=== PATIENT | female | born 1995 | race African-American/Black ===

== ENCOUNTER 2020-03-12 01:41 | Emergency (ER) | payer OTHER, SELFPAY ==
--- NOTE | ~2020-03-12 | CT_ITS ---
EXAMINATION: CT abdomen pelvis w con EXAM DATE: 03/12/2020 03:39 INDICATION: Abdominal pain. TECHNIQUE: Spiral CT of the abdomen and pelvis was performed following intravenous injection of 100 m L Omnipaque 350. Axial, coronal and sagittal images were reviewed. The dose-length product (DLP) fo r this examination was 671.08 mGy-cm. The exposure was tailored according to patient size (auto mA e xposure control), and iterative reconstruction (ASIR) was used as additional dose reduction technique . There is no prior study for comparison. FINDINGS: The liver, spleen, adrenal glands and pancreas are unremarkable. Gallbladder is unremarkab le. No biliary obstruction. Portal and splenic veins are patent. Kidneys enhance symmetrically. T here is no hydronephrosis. The uterus and ovaries are unremarkable, no adnexal mass. The bladder i s unremarkable. There is no retroperitoneal or pelvic lymphadenopathy. The appendix is normal. The stomach and small bowel are unremarkable. There is expected amount of c olonic stool. No free intraperitoneal gas. The heart is normal in size. There are no pericardial or pleural effusions. The lung bases are unremarkable. The bones are unremarkable. IMPRESSION: 1. No acute intra-abdominal findings. Reviewed, dictated and finalized at location A. GER CONCRETE
[2020-03-12 01:50] VITALS: BP 146/88; PULSE 86; RESP 18; TEMP 36.9; O2SAT 100
[2020-03-12 02:16] LABS: Add Urine Microscopic? YES; Amorphous Sediment Urine Few; Appearance Urine Cloudy (Clear); Bilirubin Urine Negative (Negative); Blood Urine Negative (Negative); Color Urine Yellow (Yellow); Glucose Urine UA Negative (Negative); Ketones Urine Negative (Negative); Leukocyte Esterase Ur Negative LEU/UL (Negative); Mucus Urine Rare /lpf; Nitrate Urine Negative (Negative); Protein Urine 1+ mg/dL (Negative); RBC Urine 0-2 /hpf (0-2); Specific Grav Ur 1.026 (1.001-1.035); Squamous Epithelial Cell Urine Rare /hpf (Few)
[2020-03-12 02:42] LABS: Basophils Absolute Auto 0.1 K/mm3 (0.0-0.1); Basophils Percent Auto 0.7 % (0.2-1.2); Eosinophils Absolute Auto 0.1 K/mm3 (0-0.3); Eosinophils Percent Auto 0.5 % (0-4.4); Hematocrit 36.1 % (37.0-47.0); Hemoglobin 11.7 g/dL (12.0-15.0); Immature Granulocyte Absolute 0.03 K/mm3 (0.00-0.031); Immature Granulocyte Percent A 0.2 % (0-0.5); Lymphocytes Absolute Auto 3.29 K/mm3 (0.9-3.2); Lymphocytes Percent Auto 24.2 % (18.3-44.2); Mean Corpuscular HGB Conc 32.4 g/dl (32-36); Mean Corpuscular Hemoglobin 26.2 pg (26-34); Mean Corpuscular Volume 80.9 fl (80-100); Mean Platelet Volume 10.2 fl (7.4-10.4); Monocytes Absolute Auto 0.9 K/mm3 (0.1-0.6); Monocytes Percent Auto 6.3 % (2.6-8.5); Neutrophils Absolute Auto 9.3 K/mm3 (1.3-6.7); Neutrophils Percent Auto 68.1 % (45.5-73.1); Platelet Count Result 339 k/mm3 (150-375); Red Blood Count 4.46 M/mm3 (4.2-5.4); Red Cell Distribution Width 15.3 % (11.5-14.5); White Blood Count 13.6 K/mm3 (4.5-10.0)
[2020-03-12 02:47] LABS: Alanine Aminotransferase 10 U/L (4-35); Albumin Level 4.3 g/dL (3.5-5.1); Alkaline Phosphatase 115 U/L (38-126); Anion Gap 7 mmol/L (8-16); Aspartate Amino Transferase 19 U/L (14-36); Bilirubin,Total 0.2 mg/dL (0.2-1.3); Blood Urea Nitrogen 14 mg/dL (7-17); Calcium 9.4 mg/dL (8.4-10.2); Carbon Dioxide 28 mmol/L (22-30); Chloride 106 mmol/L (98-107); Estimated CRCL calculation 111 ml/min; Estimated Glomerular Filt Rate > 60; Glucose 97 mg/dL (65-105); Potassium 4.3 mmol/L (3.4-5.0); Sodium 141 mmol/L (137-145)
--- NOTE | 2020-03-12 03:06 | ED.ABDPAIN ---
HPI - Abdominal Pain General Chief Complaint: Abdominal Pain Stated Complaint: abd pain Time Seen by Provider: 03/12/20 01:43 Source: RN notes reviewed History of Present Illness HPI narrative: Patient presents emergency department from home for abdominal pain. Patient states she has been having intermittent abdominal pain for the past 1 month in the lower abdomen. Pain is described as crampy in nature and does not radiate spread associated with diarrhea. Patient states that she had an approximately 1 month ago and did not receive any follow-up care following the and pain has been ongoing since that time. She denies any fevers or chills chest pain shortness of breath or any other symptoms. 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 Related Data Allergies Allergy/AdvReac Type Severity Reaction Status Date / Time No Known Allergies Allergy Unverified 12/12/16 13:13 Review of Systems Review of Systems: Narrative: Gen.: Denies fevers or chills ENT: Denies congestion Respiratory: Denies shortness of breath or cough CV: Denies chest pain or palpitations GI: See HPI denies burning, urgency, frequency or hematuria Musculoskeletal: Denies back pain or muscle pain Neuro: Denies numbness, tingling, weakness or focal weakness Skin: Denies rash Except as documented, all other systems reviewed and negative [facility] Past Medical History Medical History (Updated 03/12/20 @ 04:49 by Alden Wang DO) Patient denies significant medical history Social History Social History (Updated 03/12/20 @ 03:08 by Alden Wang DO) Smoking status: Never smoker Exam Narrative: Exam Narrative: APPEARANCE: No acute distress, nontoxic, resting in bed HEENT: Normocephalic, atraumatic, OMM RESPIRATORY: No respiratory distress, clear to auscultation bilaterally with no rhonchi wheezing or rales CARDIOVASCULAR: RRR s murmur ABDOMINAL: Soft, nondistended, tender to palpation right lower quadrant left lower quadrant entrance right upper quadrant left upper quadrant rebound or guarding MUSCULOSKELETAl: Moves all extremities. No clubbing, cyanosis or edema. NEURO: Awake and alert. Following commands, speech normal, no focal deficits SKIN:: Warm, dry. Normal Color PSYCHIATRIC: Normal affect/mood Course Course Emergency Course: Discussed with Dr. Jerome for Dr. Dozier presentation work-up agrees with plan for discharge with follow-up as an outpatient Patient states that they are feeling much better at this time. States abdominal pain has resolved. Repeat abdominal exam shows the patient's abdomen to be soft and nontender. Discussed with patient results of workup and diagnosis. Discussed need for follow-up with primary care physician, reasons to return to the emergency department in proper use of medication. Patient understands and agrees to current treatment plan Vital Signs Vital signs: Vital Signs Temperature 98.4 F 03/12/20 01:50 Pulse Rate 86 03/12/20 01:50 Respiratory Rate 18 03/12/20 01:50 Blood Pressure 146/88 H 03/12/20 01:50 Pulse Oximetry 100 03/12/20 01:50 Temperature 98.4 F 03/12/20 01:50 Pulse Rate 79 03/12/20 03:40 Respiratory Rate 18 03/12/20 03:40 Blood Pressure 141/93 H 03/12/20 03:40 Pulse Oximetry 100 03/12/20 03:40 MDM - Abdominal Pain MDM Narrative Medical decision making narrative: Patient's abdomen is soft without significant pain or signs of surgical abdomen on serial exams. Lab and x-ray evaluations are reviewed and patient is felt to be a reasonable candidate for outpatient management. Patient was instructed as to limitations of x-ray and laboratory evaluation and encouraged to return to ED or primary physician for repeat exam in 12 hours if continued or worsening pain Lab Data Result diagrams: 03/12/20 02:26 03/12/20 02:26 Labs: Lab Results 03/12/20 03/12/20 03/12/20 Range/Units 02:04 02:26 02:26 WBC 13.6 H (4.5-10.0
[2020-03-12 03:40] VITALS: BP 141/93; PULSE 79; RESP 18; O2SAT 100
[2020-03-12 05:00] VITALS: BP 143/87; PULSE 74; RESP 18; O2SAT 99
== END 2020-03-12 05:03 | disposition home or self-care (01) ==
PROVIDERS: Emergency Provider Emergency Medicine; PCP Pediatrics
DX: N83.201 Unspecified ovarian cyst, right side (principal)
CPT/HCPCS: 36415; 74177; 80053; 81001; 81025; 85025; 99284; Q9967

== ENCOUNTER 2023-06-10 15:29 | Emergency (ER) | payer MEDICAID, SELFPAY ==
--- NOTE | ~2023-06-10 | XR_ITS ---
EXAMINATION: XR ankle LT min 3V, XR foot LT min 3V DATE: 06/10/2023 16:52 INDICATION: Left ankle pain post fall TECHNIQUE: 1. Anteroposterior, mortise and lateral view of the left ankle were obtained. 2. Dorsoplantar and lateral views of the left foot were obtained. COMPARISON: None. FINDINGS: Mildly comminuted fractures of the distal left fibula with 4 mm posterior displacement along the frac ture line extending obliquely from posterior cephalad to the anterior inferior there is 6 mm distract ion of a horizontal fracture extending across the medial malleolus. There is also suggestion of a min imally displaced fracture of the posterior malleolus. Ankle mortise remains congruent normal alignmen t and no evident fractures within the left foot. Joint spaces are normal. Fiberglas splinting materia l about the left foot and ankle. IMPRESSION: 1. Mild to minimally displaced trimalleolar fracture at the left ankle which is in near-anatomic alig nment post splinting. The configuration of the fracture suggests a Damon B supination exo rotation in jury pattern. Reviewed, dictated and finalized at location A. MANAGER IMPRESSION: 1. Mild to minimally displaced trimalleolar fracture at the left ankle which is in near-anatomic alignment post splinting. The configuration of the fracture s uggests a Damon B supination exo rotation injury pattern.
[2023-06-10 15:37] VITALS: BP 137/81; PULSE 102; RESP 16; TEMP 36.5; O2SAT 100
--- NOTE | 2023-06-10 16:22 | ED.GENADULT ---
HPI - General Adult General Chief complaint: Extremity Injury, Lower <Geena Cha August, COMPRESSOR STATION CHIEF ENGINEER - Last Filed: 06/10/23 16:27> Stated complaint: left ankle pain <Geena Cha August, COMPRESSOR [employer]ATION CHIEF ENGINEER - Last Filed: 06/10/23 16:27> Time Seen by Provider: 06/10/23 16:22 <Geena Cha August, COMPRESS[employer] CHIEF ENGINEER - Last Filed: 06/10/23 16:27> Focused HPI: Trupti Martinez is a 27 y/o female who presents with reports of falling on ice 2 days ago and went to [facility] and was told that she has an ankle fracture to her left ankle and was given follow up, but she cannot get in to see her follow up and she does not want to go to [facility] and wants someone else to look at her ankle and see if they can fix it here. Reports pain is a 7/ 10 to her ankle. Still in a splint / able to move her toes. GENERAL: Well-appearing, well-nourished, and in no acute distress. HEAD: Normocephalic, atraumatic. CHEST: Clear to auscultation. ?No respiratory distress. HEART: Regular rate and rhythm.? NEURO: ?Alert and oriented x3. Patient screened in triage and initial orders placed.? ?Additional care and disposition to be based upon?diagnostic testing and treatment. <Geena Cha August, COMPRESSOR STATION CHIEF ENGINEER - Last Filed: 06/10/23 16:27> History of Present Illness HPI narrative: 27-year-old female reports for evaluation for orthopedic referral. Patient slipped on ice 2 days ago and was evaluated at [facility] emergency department. Patient states she had a conscious sedation reduction performed on her ankle and was told she had a fracture needed to follow-up with orthopedist. Patient states that her and her father attempted to call the orthopedist at the [facility] multiple times without return of a phone call. She presents today for a referral. She states she has been taking [place] with improvement. Denies significantly worsening pain, numbness to her feet. Denies any urine or losing consciousness during the fall. Denies other injuries acquired. <Jennifer Harrison PA-C - Last Filed: 06/10/23 18:38> Related Data Allergies/adverse reactions: Allergies Allergy/AdvReac Type Severity Reaction Status Date / Time No Known Allergies Allergy Verified 06/10/23 17:41 <Geena Cha Marisel, COMPRESS[employer] CHIEF ENGINEER - Last Filed: 06/10/23 16:27> Review of Systems Review of Systems: CONSTITUTIONAL: Denies fever, chills, or sweats. EYES: Denies visual changes, redness, or discharge. ENT: Denies rhinorrhea, congestion, sore throat, or otalgia. CARDIOVASCULAR: Denies chest pain, palpitations, or edema. RESPIRATORY: Denies cough or dyspnea. GASTROINTESTINAL: Denies abdominal pain, nausea, vomiting, or diarrhea. GENITOURINARY: Denies dysuria or hematuria. SKIN: Denies rash or itching. MUSCULOSKELETAL: See HPI NEUROLOGIC: Denies headache, numbness, or weakness. PSYCHIATRIC: Denies anxiety or depression. <Jennifer Harrison PA-C - Last Filed: 06/10/23 18:38> PMFSH Past Medical History Medical History: Medical History Patient denies significant medical history <Geena Cha August, - Last Filed: 06/10/23 16:27> Social History Social History: Social History Smoking status: Never smoker <Geena Joiner, - Last Filed: 06/10/23 16:27> Exam Narrative: GENERAL: Well-appearing, well-nourished, and in no acute distress. HEAD: Normocephalic, atraumatic. EYES: PERRLA and EOMI. NECK: Supple. CHEST: Clear to auscultation. No respiratory distress. HEART: Regular rate and rhythm. No murmur heard. Normal peripheral pulses. EXTREMITIES: LLE: Posterior OCL with Cong bandages in place to left lower extremity. Cong bandages partially removed, palpation of compartments are soft. Patient able to wiggle her toes. Cap refill is less than 2. Sensation intact throughout all toes. SKIN: Warm, dry, no rash. NEURO: No focal deficits. Alert and oriented x3 <Jennifer Harrison PA-C - Last Filed: 06/10/23 18:38> Course Vital S
[2023-06-10 18:43] VITALS: BP 133/71; PULSE 87; RESP 18; TEMP 36.4; O2SAT 99
== END 2023-06-10 18:44 | disposition home or self-care (01) ==
PROVIDERS: Emergency Provider Physician Assistant; PCP Pediatrics
DX: S82.852D Displaced trimalleolar fracture of left lower leg, subsequent encounter for closed fracture with routine healing (principal); W19.XXXD Unspecified fall, subsequent encounter
CPT/HCPCS: 73610; 73630; 99281; 99283

== ENCOUNTER 2023-06-21 09:56 | Outpatient (CLI) | payer MEDICAID, SELFPAY ==
--- NOTE | ~2023-06-21 | CT_ITS ---
EXAMINATION: CT ankle LT wo con DATE: 06/21/2023 10:20 INDICATION: Left ankle pain TECHNIQUE: High resolution computed tomography (CT) of the left ankle was performed without intraveno us contrast. Additional sagittal and coronal reconstructions were performed. Automated exposure contr ol and iterative reconstruction technique were employed. The dose-length product was 233.47 mGy-cm. COMPARISON: Radiographs dated FINDINGS: Again seen is a trimalleolar fracture of the left ankle with Fiberglas splinting. Mild posterior angu lation of the transverse fracture across the base of the medial malleolus resulting in 5 mm widening of the anterior fracture plane. Nondisplaced small: Limited fracture extending across the posterior m alleolus which involves only negligible portion of the articular surface of the tibial plafond and. O blique fracture across the metaphyseal region of the distal fibula with one cortical width medial dis placement. There is mild comminution at the distal margin of the fracture with mild displacement of a couple small fracture fragments. There are a few very small lucent articular fracture fragments loca dana at the anterior recess of the joint space and at the articulation between the distal tibia and fi bula. The fractures remain ununited with no definitive productive changes of healing yet apparent. An kle mortise remains congruent without significant joint effusion. Normal alignment and joint spaces t hroughout the left foot with no additional fractures identified. IMPRESSION: 1. No significant change in a trimalleolar fracture of the left ankle which remains in near-anatomic alignment with minimal to mild displacement as detailed above. Reviewed, dictated and finalized at location B. ASE AND TECHNICAL RECORDS CLERK IMPRESSION: 1. No significant change in a trimalleolar fracture of the left ankle which rem ains in near-anatomic alignment with minimal to mild displacement as detailed a jo.
== END 2023-06-21 09:57 ==
PROVIDERS: PCP Orthopaedic Surgery; Visit Provider Orthopaedic Surgery
DX: M25.572 Pain in left ankle and joints of left foot (principal)
CPT/HCPCS: 73700

== ENCOUNTER 2023-07-27 16:37 | Emergency (ER) | payer MEDICAID, SELFPAY ==
[2023-07-27 16:39] VITALS: BP 135/83; PULSE 110; RESP 16; TEMP 37.2; O2SAT 100
--- NOTE | 2023-07-27 17:13 | ED.GENADULT ---
HPI - General Adult General Chief complaint: Wound/Laceration Stated complaint: infected incision Time Seen by Provider: 07/27/23 16:45 History of Present Illness HPI narrative: Patient is a 27-year-old female who presents ER with concerns for infection to her left foot. Patient underwent surgery on 06/27/2023 to fix a ankle fracture by Dr. Fried. she has been doing well and is wearing a walking boot. Boot his began to rub the top of her foot and she has a 1 cm diameter ulceration that has been draining clear yellow fluid. No fevers or chills or sweats. Mild redness from the area. No lymphangitic streaking. No calf pain. No fevers or chills or sweats. She has not called her surgeon about the issue. Related Data Allergies Allergy/AdvReac Type Severity Reaction Status Date / Time No Known Allergies Allergy Verified 06/10/23 17:41 Review of Systems Review of Systems: All systems reviewed & are unremarkable except as noted in HPI and below Constitutional: Constitutional: Reports no additional constitutional complaints Cardiovascular: Cardiovascular: Reports no additional cardiovascular complaints Respiratory: Respiratory: Reports no additional respiratory complaints Integumentary/Breasts: Skin/Breast: Denies pruritus, Reports erythema, Denies rash and Reports skin ulcer PMFSH Past Medical History Medical History (Updated 07/27/23 @ 17:41 by Kirk Mcmahon MD) Patient denies significant medical history Surgical History Surgical History (Updated 07/27/23 @ 17:41 by Kirk Mcmahon MD) History of ankle surgery left Social History Social History Smoking status: Never smoker Exam Narrative: GENERAL: Well-appearing, well-nourished, and in no acute distress. HEAD: Normocephalic, atraumatic. HEART: Regular rate and rhythm. Normal peripheral pulses. EXTREMITIES: left foot with limits motion at the ankle due to pain and surgical fixation. Surgical scars appear normal. Dorsum foot has a 1 cm diameter ulceration about going discharge or fluctuance. Mild surrounding erythema but nontender SKIN: Warm, dry, no rash.. See above NEURO: Alert and oriented x3. PSYCH: Normal mood and affect. Course Course Emergency Course: will conservatively treat ulcer for early infection. Recommend follow-up with her surgeon. This is not a surgical site infection. Vital Signs Vital signs: Vital Signs Temperature 98.9 F 07/27/23 16:39 Pulse Rate 110 H 07/27/23 16:39 Respiratory Rate 16 07/27/23 16:39 Blood Pressure 135/83 07/27/23 16:39 Pulse Oximetry 100 07/27/23 16:39 Temperature 98.9 F 07/27/23 16:39 Pulse Rate 110 H 07/27/23 16:39 Respiratory Rate 16 07/27/23 16:39 Blood Pressure 135/83 07/27/23 16:39 Pulse Oximetry 100 07/27/23 16:39 Medical Decision Making Vital Signs Vital Signs: Vital Signs Temperature 98.9 F 07/27/23 16:39 Pulse Rate 110 H 07/27/23 16:39 Respiratory Rate 16 07/27/23 16:39 Blood Pressure 135/83 07/27/23 16:39 Pulse Oximetry 100 07/27/23 16:39 Temperature 98.9 F 07/27/23 16:39 Pulse Rate 110 H 07/27/23 16:39 Respiratory Rate 16 07/27/23 16:39 Blood Pressure 135/83 07/27/23 16:39 Pulse Oximetry 100 07/27/23 16:39 Discharge Plan Discharge Clinical Impression: Wound infection Patient Disposition: Home, Self-Care Condition: Stable Instructions: Wound Infection (ED) Additional Instructions: You have a small area of skin breakdown on the dorsum of her foot. It is likely from rubbing your brace. Please pad the area well. Because it is slightly reddened your being started on oral antibiotics. Follow-up with your surgeon. Prescriptions: New cefuroxime axetil 500 mg tablet 500 mg PO BID Qty: 14 0RF cefuroxime axetil 500 mg tablet 500 mg PO BID Qty: 14 0RF No Action ibuprofen [IBU] 600 mg tablet 600
== END 2023-07-27 17:42 | disposition home or self-care (01) ==
PROVIDERS: Emergency Provider Emergency Medicine; PCP Orthopaedic Surgery
DX: S91.302A Unspecified open wound, left foot, initial encounter (principal); L08.9 Local infection of the skin and subcutaneous tissue, unspecified; S82.892D Other fracture of left lower leg, subsequent encounter for closed fracture with routine healing; X58.XXXD Exposure to other specified factors, subsequent encounter; X58.XXXA Exposure to other specified factors, initial encounter
CPT/HCPCS: 99283

== ENCOUNTER 2024-03-05 15:06 | Emergency (ER) | payer BC, SELFPAY ==
[2024-03-05 15:12] VITALS: BP 158/93; PULSE 95; RESP 18; TEMP 36.2; O2SAT 95
--- NOTE | 2024-03-05 15:25 | ED_ITS ---
HPI - URI/Sore Throat General Chief Complaint: Upper Respiratory Infection Stated Complaint: cold symptoms, rash Focused HPI: 28-year-old female presents emergency department forURI symptoms x1 week. Patient is reporting cough congestion. She is also requesting STD testing. States she traveled to see her boyfriend on February 20, 2024 where she had unprotected sex. States a few days ago she began developing a rash on the volar aspect of her left hand that is itchy. She denies vaginal discharge, dysuria, hematuria, abdominal pain, fever. She does note that she has a history of gonorrhea. She is requesting STD testing including syphilis and HIV. She denies recent medication changes. GENERAL: Well-appearing, well-nourished, and in no acute distress. HEAD: Normocephalic, atraumatic. CHEST: Clear to auscultation. ?No respiratory distress. SKIN: Papular pruritic rash to the volar aspect of the left wrist extending into the base of the left palm, no erythema or open wounds, no crepitus or vesicle. No erythema HEART: Regular rate and rhythm.? NEURO: ?Alert and oriented x3. Patient screened in triage and initial orders placed.? ?Additional care and disposition to be based upon?diagnostic testing and treatment. Related Data Allergies Allergy/AdvReac Type Severity Reaction Status Date / Time No Known Allergies Allergy Verified 06/10/23 17:41 [facility] Past Medical History Medical History (Updated 03/10/24 @ 00:47 by Jennifer Harrison PA-C) Patient denies significant medical history Surgical History Surgical History (Updated 07/27/23 @ 17:41 by Kirk Mcmahon MD) History of ankle surgery left Social History Social History Smoking status: Never smoker Course Vital Signs Vital signs: Vital Signs Temperature 97.2 F L 03/05/24 15:12 Pulse Rate 95 03/05/24 15:12 Respiratory Rate 18 03/05/24 15:12 Blood Pressure 158/93 H 03/05/24 15:12 Pulse Oximetry 95 03/05/24 15:12 Oxygen Delivery Room Air 03/05/24 15:12 Temperature 97.2 F L 03/05/24 15:12 Pulse Rate 95 03/05/24 15:12 Respiratory Rate 18 03/05/24 15:12 Blood Pressure 158/93 H 03/05/24 15:12 Pulse Oximetry 95 03/05/24 15:12 Oxygen Delivery Room Air 03/05/24 15:12 Discharge Plan Discharge Clinical Impression: Screen for STD (sexually transmitted disease), URI (upper respiratory infe ction) Patient Disposition: Elopement After Seen by Prov Condition: Stable Prescriptions: No Action ibuprofen [IBU] 600 mg tablet 600 mg PO Q6H PRN (Reason: pain) Qty: 20 0RF cefuroxime axetil 500 mg tablet 500 mg PO BID Qty: 14 0RF cefuroxime axetil 500 mg tablet 500 mg PO BID Qty: 14 0RF Follow-up/Referrals: Fariha,Michael Fuentes MD [Primary Care Provider] -
--- NOTE | 2024-03-05 18:12 | PC.NURSE ---
No answer after mult attempts for re vitalizing and ordered tests such as xray and labs. Pt did not notify layout operator of leaving and was not seen exiting.
== END 2024-03-05 18:35 | disposition left against medical advice (07) ==
PROVIDERS: Emergency Provider Physician Assistant; PCP Orthopaedic Surgery
DX: J06.9 Acute upper respiratory infection, unspecified (principal); Z11.3 Encounter for screening for infections with a predominantly sexual mode of transmission
CPT/HCPCS: 99281